=== PATIENT | male | born 1945 | race Caucasian/White ===

== ENCOUNTER → 2016-06-20 | Outpatient (CLI) | payer OTHER, BC ==
[~2016-06-20] MED LIST: ACCUNEB SO1.25 MG/1 INH; B-12 DUAL SP5000 MCG PO; BAYER CHEWABLE81 MG PO; BYSTOLIC 5 MG5 M1 PO; CARDURA4 MG PO; CLONAZEPAM 0.50.5 M1 PO; IBUPROFEN 800800 M1 PO; LIPITOR10 MG PO; TRAZODONE HCL50 MG PO; TUMS PO; WELLBUTRIN XL300 MG PO; ZYLOPRIM300 MG PO
== END ==
LOC: MRI 08:09
DX: R41.3 Other amnesia (principal); R42 Dizziness and giddiness; R51 Headache